=== PATIENT | female | born 2000 | race African-American/Black ===

== ENCOUNTER 2022-02-28 02:18 | Emergency (ER) | payer BC ==
[~2022-02-28] VITALS: Ht 160 cm; Wt 103.2 kg
[2022-02-28 02:24] VITALS: TEMP 98.6
[2022-02-28] MEDS ORDERED: EPIPEN 2-PAK1 MG/ML IM (02:41)
[2022-02-28] MEDS ORDERED: PREDNISONE50 MG PO (02:41)
[2022-02-28 02:54] VITALS: BP 119/75; PULSE 71
== END 2022-02-28 02:55 | disposition home or self-care (01) ==
LOC: COL.ER 02:18
DX: T78.40XA Allergy, unspecified, initial encounter (principal)
CPT/HCPCS: J7512